=== PATIENT | male | born 1930 | race Caucasian/White ===

== ENCOUNTER 2018-11-19 10:07 | Observation (INO) | payer MEDICARE, BC ==
[2018-11-19] MEDS ORDERED: SODIUM CHLORIDE 0.9% 1,000 ML IV STA (10:12)
--- NOTE | 2018-11-19 11:01 | XR ---
EXAMINATION TYPE: XR chest 2V DATE OF EXAM: 11/19/2018 HISTORY: pain. REFERENCE: Previous study dated 08/04/2016. FINDINGS: There has been a midline sternotomy. The heart is mildly enlarged. There are chronic inters titial changes. I do not see evidence of pneumonia or edema. There is chronic blunting of the right C P angle. IMPRESSION: 1. MILD CARDIOMEGALY. 2. CHRONIC RIGHT-SIDED PLEURAL REACTION.
--- NOTE | 2018-11-19 11:54 | ED ---
Chest Pain HPI - General Stated Complaint: Chest pain Time Seen by Provider: 11/19/18 10:11 Source: RN notes reviewed, old records reviewed - History of Present Illness Initial Comments: This is a 8-year-old male the ER for evaluation. Presents today for evaluation of chest pain. Patient's poor historian unable to give accurate history secondary to recent short-term memory loss, constant repeating himself. History obtained by EMS patient's chart. MD Complaint: chest pain -: unknown Onset: during rest, awoke with symptoms Pain Location: substernal, left chest Pain Radiation: none, LUE Severity: mild Severity scale (1-10): 2 Quality: tightness Consistency: constant Improves With: nothing Worsens With: nothing Anginal Symptoms: nausea Other Symptoms: palpitations Treatments Prior to Arrival: none - Related Data Home Medications Medication Instructions Recorded Confirmed Aspirin 162 mg PO DAILY 09/08/14 11/19/18 Atorvastatin [Lipitor] 20 mg PO DAILY 09/08/14 11/19/18 Omeprazole [PriLOSEC] 20 mg PO AC-BRKFST 09/08/14 11/19/18 Cholecalciferol [Vitamin D3] 1,000 unit PO DAILY 08/04/16 11/19/18 Levothyroxine Sodium [Synthroid] 50 mcg PO DAILY 08/04/16 11/19/18 Metoprolol Tartrate [Lopressor] 25 mg PO BID 08/04/16 11/19/18 Vitamin B Complex 1 cap PO DAILY 08/04/16 11/19/18 Allergies Allergy/AdvReac Type Severity Reaction Status Date / Time No Known Allergies Allergy Verified 11/19/18 11:13 Review of Systems ROS Statement: Those systems with pertinent positive or pertinent negative responses have been documented in the HPI. ROS Other: All systems not noted in ROS Statement are negative. EKG Findings - EKG Comments: EKG Findings:: EKG shows bradycardic rhythm junctional rate of 50, [place] interval 244 4, QRS 94, QTc 485 Past Medical History Past Medical History: Atrial Fibrillation, Coronary Artery Disease (CAD), Deep Vein Thrombosis (DVT), GI Bleed, Hearing Disorder / Deafness, Hyperlipidemia, Hypertension, Osteoarthritis (OA) Additional Past Medical History / Comment(s): short term memory impairment, [place] RT EAR DEAF LT EAR HEARING AID, BRONCHITIS, PNEUMOTHORAX, DIVERTICULITIS, ESOPHEGEAL STRICTURES HAD DILATION DONE NOW VERY MIN DIFFICULTY SWALLOWING, SHINGLE SYEARS AGO.UTI History of Any Multi-Drug Resistant Organisms: None Reported Past Surgical History: Appendectomy, Bowel Resection, Cholecystectomy, Coronary Bypass/CABG, Heart Catheterization, Hernia Repair, Joint Replacement, Orthopedic Surgery, Tonsillectomy Additional Past Surgical History / Comment(s): left knee REPALCEMENT,ORIF right ankle, "5 way coronary bypass", right total hip, C/T 2001, HEMORRHOIDECTOMY, EGD /COLONOSCOPY, MARY CATARACTS-LENS IMPLANTS,ESOPHEAL DILATION Past Anesthesia/Blood Transfusion Reactions: No Reported Reaction Past Psychological History: No Psychological Hx Reported Additional Psychological History / Comment(s): PT LIVES AT HOME WITH HIS , USES A CANE FOR LONG DISTANCES. 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) Smoking Status: Never smoker Past Alcohol Use History: Daily Additional Past Alcohol Use History / Comment(s): ENJOYS A VODKA AND CRANBERRY MIXED DRINK BEFORE AND AFTER DINNER Past Drug Use History: None Reported - Past Family History Father Family Medical History: AFIB, Cancer, Thyroid Disorder Additional Family Medical History / Comment(s): DJD, LYMPHOMA, BRUSITIS Mother Family Medical History: AFIB, Osteoarthritis (OA) Additional Family Medical History / Comment(s): GOUT, DEPRESSION IN LATER LIFE, CATARACTS General Exam General appearance: alert, in no apparent distress Head exam: Present: atraumatic, normocephalic, normal inspection Eye exam: Present: normal appearance, PERRL, EOMI. Absent: scleral icterus, conjunctival injection, periorbital swelling ENT exam: Present: normal exam, mucous membranes moist Neck exam: Present: normal inspection. Absent: tenderness, meningismus, lymphadenopathy Respiratory exam: Present: normal lung sounds bilaterally. Absent: respiratory distress, wheezes, rales, rhonchi, stridor Cardiovascular Exam: Present: regular rate, normal rhythm, normal heart sounds. Absent: systolic murmur, diastolic murmur, rubs, gallop, clicks GI/Abdominal exam: Present: soft, normal bowel sounds. Absent: distended, tenderness, guarding, rebound, rigid Extremities exam: Present: normal inspection, full ROM, normal capillary refill. Absent: tenderness, pedal edema, joint swelling, calf tenderness Back exam: Present: normal inspection Neurological exam: Present: alert, oriented X3, CN II-XII intact Psychiatric exam: Present: normal affect, normal mood Skin exam: Present: warm, dry, intact, normal color. Absent: rash Course Vital Signs 11/19/18 11/19/18 10:08 10:24 Temperature 97.5 F L Pulse Rate 52 L Respiratory 18 18 Rate Blood Pressure 133/62 O2 Sat by Pulse 100 Oximetry medical - Reevaluation(s) Reevaluation #1: 11/19/18 10:45 Medical records reviewed Chest Pain MDM - MDM 88 male the ER for evaluation. Patient be admitted for cardiac observation Disposition Clinical Impression: Unstable angina, Chest pain Disposition: ADMITTED IP TO THIS HOSP Condition: Undetermined Is patient prescribed a controlled substance at d/c from ED?: No
[2018-11-19] MEDS ORDERED: HEPARIN SODIUM,PORCINE 5,000 UNIT/ML 1 ML VIAL ONE (15:20)
[2018-11-19] MEDS ORDERED: SODIUM CHLORIDE 0.9% 1,000 ML BAG ONE (15:20)
[2018-11-19] MEDS ORDERED: HEPARIN SOD,PORK IN 0.45% NACL PMX 25,000 UNIT/250 ML BAG IV ONE (15:20)
[2018-11-19 22:22] LABS: Basophils % (A) 0 %; Eosinophils # (A) 0.1 k/uL (0-0.7); Eosinophils % (A) 1 %; HCT 41.1 % (39.0-53.0); HGB 13.9 gm/dL (13.0-17.5); Lymphocytes # (A) 2.1 k/uL (1.0-4.8); Lymphocytes % (A) 18 %; MCH 32.8 pg (25.0-35.0); MCHC 33.7 g/dL (31.0-37.0); MCV 97.3 fL (80.0-100.0); Mean Platelet Volume 8.1; Monocytes # (A) 0.7 k/uL (0-1.0); Monocytes % (A) 6 %; Neutrophils # (A) 8.4 k/uL (1.3-7.7); Neutrophils % (A) 73 %; Platelet Count 159 k/uL (150-450); RBC 4.23 m/uL (4.30-5.90); RDW 12.4 % (11.5-15.5); WBC 11.6 k/uL (3.8-10.6)
[2018-11-20] MEDS ORDERED: HEPARIN SODIUM,PORCINE 5,000 UNIT/ML 1 ML VIAL IV PRN (01:14)
[2018-11-20] MEDS ORDERED: HEPARIN SOD,PORK IN 0.45% NACL 25,000 UNIT in 0.45% NACL 1 250ML.BAG IV SCH (01:15)
[2018-11-20 03:23] LABS: Albumin 3.8 g/dL (3.5-5.0); Calcium 9.6 mg/dL (8.4-10.2); Potassium 4.5 mmol/L (3.5-5.1); Total Bilirubin 0.9 mg/dL (0.2-1.3); Total Protein 6.9 g/dL (6.3-8.2)
[2018-11-20 03:24] LABS: Creatine Kinase 58 U/L (55-170); Creatine Kinase MB 1.8 ng/mL (0.0-2.4); Troponin I <0.012 ng/mL (0.000-0.034)
[2018-11-20 03:51] LABS: Creatine Kinase 63 U/L (55-170)
[2018-11-20 04:04] LABS: Creatine Kinase MB 1.8 ng/mL (0.0-2.4); Troponin I <0.012 ng/mL (0.000-0.034)
--- NOTE | 2018-11-20 08:32 | P.CRDCN ---
History of Present Illness Consult date: 11/20/18 Chief complaint: Chest pain History of present illness: This is a pleasant 88-year-old gentleman who presented to the emergency room complaining of chest discomfort. The patient overall is a poor historian. He does have history of coronary artery disease and he stated that he underwent coronary artery bypass grafting 4 at [facility] but he does not recall the time. Beside that he does have hypertension as well as dyslipidemia. According to him, currently he does not follow with any smoking pipe mounter. The patient was in his usual state of health yesterday when he was getting out of his bed and sitting on the age of the bed when he started experiencing chest discomfort, in the center of the chest, as a pressure without any radiation to the arm or neck or shoulders, and it was associated with shortness of breath as well as a sweating. The chest discomfort lasted about an hour, when the patient arrived to the emergency room he was chest pain-free and continues to be chest pain-free during his hospitalization. The cardiac enzymes were checked and came in to be unremarkable. The chest x- ray did not show any acute abnormalities. The initial EKG showed sinus rhythm without any ischemic ST or T-wave abnormalities but the subsequent EKG showed T wave inversion in the whole anterolateral leads. So the patient does have dynamic ST and T wave abnormalities quite concerning for severe underlying coronary artery disease. Past Medical History Past Medical History: Atrial Fibrillation, Coronary Artery Disease (CAD), Deep Vein Thrombosis (DVT), GI Bleed, Hearing Disorder / Deafness, Hyperlipidemia, Hypertension, Osteoarthritis (OA) Additional Past Medical History / Comment(s): short term memory impairment, [place] RT EAR DEAF LT EAR HEARING AID, BRONCHITIS, PNEUMOTHORAX, DIVERTICULITIS, ESOPHEGEAL STRICTURES HAD DILATION DONE NOW VERY MIN DIFFICULTY SWALLOWING, SHINGLE SYEARS AGO.UTI History of Any Multi-Drug Resistant Organisms: None Reported Past Surgical History: Appendectomy, Bowel Resection, Cholecystectomy, Coronary Bypass/CABG, Heart Catheterization, Hernia Repair, Joint Replacement, Orthopedic Surgery, Tonsillectomy Additional Past Surgical History / Comment(s): left knee REPALCEMENT,ORIF right ankle, "5 way coronary bypass", right total hip, C/T 2001, HEMORRHOIDECTOMY, EGD /COLONOSCOPY, MARY CATARACTS-LENS IMPLANTS,ESOPHEAL DILATION Past Anesthesia/Blood Transfusion Reactions: No Reported Reaction Past Psychological History: No Psychological Hx Reported Additional Psychological History / Comment(s): PT LIVES AT HOME WITH HIS , USES A CANE FOR LONG DISTANCES. 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) Smoking Status: Never smoker Past Alcohol Use History: Daily Additional Past Alcohol Use History / Comment(s): ENJOYS A VODKA AND CRANBERRY MIXED DRINK BEFORE AND AFTER DINNER Past Drug Use History: None Reported - Past Family History Father Family Medical History: AFIB, Cancer, Thyroid Disorder Additional Family Medical History / Comment(s): DJD, LYMPHOMA, BRUSITIS Mother Family Medical History: AFIB, Osteoarthritis (OA) Additional Family Medical History / Comment(s): GOUT, DEPRESSION IN LATER LIFE, CATARACTS Medications and Allergies Home Medications Medication Instructions Recorded Confirmed Type Aspirin 162 mg PO DAILY 09/08/14 11/19/18 History Atorvastatin [Lipitor] 20 mg PO DAILY 09/08/14 11/19/18 History Omeprazole [PriLOSEC] 20 mg PO AC-BRKFST 09/08/14 11/19/18 History Cholecalciferol [Vitamin D3] 1,000 unit PO DAILY 08/04/16 11/19/18 History Levothyroxine Sodium [Synthroid] 50 mcg PO DAILY 08/04/16 11/19/18 History Metoprolol Tartrate [Lopressor] 25 mg PO BID 08/04/16 11/19/18 History Vitamin B Complex 1 cap PO DAILY 08/04/16 11/19/18 History Allergies Allergy/AdvReac Type Severity Reaction Status Date / Time No Known Allergies Allergy Verified 11/19/18 11:13 Physical Exam Vitals: Vital Signs Temp Pulse Pulse Resp BP BP Pulse Ox 11/20/18 07:05 98.5 F 78 18 122/57 96 11/20/18 04:00 98.4 F 85 18 118/60 97 11/20/18 03:29 18 11/19/18 23:35 18 11/19/18 23:26 97.9 F 71 18 108/66 97 11/19/18 20:45 18 11/19/18 20:00 97.4 F L 75 18 136/64 99 11/19/18 10:24 18 11/19/18 10:08 97.5 F L 52 L 18 133/62 100 Intake and Output 11/19/18 11/20/18 11/20/18 22:59 06:59 14:59 Intake Total 15.64 Balance 15.64 Intake: Intake, IV Titration 15.64 Amount Heparin Sod,Pork in 0.45% 15.64 NaCl 25,000 unit In 0.45 % NaCl 1 250ml.bag @ 10 mls/hr IV .Q24H [facility] Rx#: [id number] Other: # Voids 1 1 - Constitutional General appearance: no acute distress - Respiratory Respiratory: bilateral: CTA - Cardiovascular Rhythm: regular Heart sounds: normal: S1, S2 Abnormal Heart Sounds: systolic murmur Results 11/19/18 10:42 11/19/18 14:48 Cardiac Enzymes 11/19/18 11/19/18 11/20/18 Range/Units 14:48 14:48 02:52 AST 51 (17-59) U/L CK-MB (CK-2) 1.8 1.8 (0.0-2.4) ng/mL Troponin I <0.012 <0.012 (0.000-0.034) ng/mL Coagulation 11/19/18 11/20/18 Range/Units 20:45 02:52 APTT 45.8 H 41.3 H (22.0-30.0) sec CBC 11/19/18 Range/Units 10:42 WBC 11.6 H (3.8-10.6) k/uL RBC 4.23 L (4.30-5.90) m/uL Hgb 13.9 (13.0-17.5) gm/dL Hct 41.1 (39.0-53.0) % Plt Count 159 (150-450) k/uL Comprehensive Metabolic Panel 11/19/18 Range/Units 14:48 Sodium 143 (137-145) mmol/L Potassium 4.5 (3.5-5.1) mmol/L Chloride 111 H (98-107) mmol/L Carbon Dioxide 26 (22-30) mmol/L BUN 22 H (9-20) mg/dL Creatinine 0.84 (0.66-1.25) mg/dL Glucose 110 H (74-99) mg/dL Calcium 9.6 (8.4-10.2) mg/dL AST 51 (17-59) U/L ALT 54 (21-72) U/L Alkaline Phosphatase 55 (38-126) U/L Total Protein 6.9 (6.3-8.2) g/dL Albumin 3.8 (3.5-5.0) g/dL Intake and Output 11/19/18 11/20/18 11/20/18 22:59 06:59 14:59 Intake Total 15.64 Balance 15.64 Intake: Intake, IV Titration 15.64 Amount Heparin Sod,Pork in 0.45% 15.64 NaCl 25,000 unit In 0.45 % NaCl 1 250ml.bag @ 10 mls/hr IV .Q24H [facility] Rx#: [id number] Other: # Voids 1 1 11/19/18 10:42 11/19/18 14:48 Assessment and Plan Assessment: Assessment #1 chest discomfort, concerning for angina. #[address] changes on the EKG represents severe underlying coronary artery disease #3 known CAD and status post CABG with unknown details #4 hypertension #5 dyslipidemia Plan #1 restart aspirin metoprolol, and statin #2 add oral nitrates to the current medical regimen #3 obtain an echocardiogram was Doppler #4 pursue a conservative medical approach at this point, unless the patient does have any more episodes of chest discomfort, I would consider coronary angiogram #4 monitor the patient for additional 24 hours #5 follow-up with the patient. Thank you for allowing us participate in his care.
[2018-11-20] MEDS ORDERED: NON-FORMULARY DRUG (Vitamin B Complex [Vitamin B Complex] 1 CAP) PO SCH (09:00)
[2018-11-20] MEDS: PANTOPRAZOLE 40 MG TABLET PO SCH (10:20)
[2018-11-20] MEDS: METOPROLOL TARTRATE 25 MG TAB PO SCH ×2 (10:20→20:02)
[2018-11-20] MEDS: ISOSORBIDE MONONITRATE ER 30 MG TAB.ER.24H PO SCH (10:20)
[2018-11-20] MEDS: ATORVASTATIN 20 MG TAB PO SCH (10:20)
[2018-11-20] MEDS: LEVOTHYROXINE 50 MCG TAB PO SCH (10:20)
[2018-11-20] MEDS: ASPIRIN 81 MG PO SCH (10:20)
[2018-11-20] MEDS ORDERED: CHOLECALCIFEROL 1,000 UNIT TAB PO SCH (12:00)
--- NOTE | 2018-11-20 14:11 | P.HPIM ---
History of Present Illness H&P Date: 11/19/18 Chief Complaint: Unstable angina, CAD, A. fib, history of DVT, history of GI bleed 88-year-old male one of our office patient with past medical history of CAD post bypass surgery 4 vessel many years ago, history of A. fib, history of recurrent angina, history of mild memory loss and DVT who developed to have severe midsternal chest pain as a newly onset of angina around 3:00 in the morning radiating to the left upper shoulder area associated with cold sweat palpitation nausea and vomiting with worsening confusion at the time symptoms were very bad, and respond to 2 nitroglycerin and time. Patient was transferred to the emergency department at [facility] his cardiac enzyme came back normal at the time patient was started on angina protocol consult cardiology and admit patient to the hospital for the above problem. Review of Systems CONSTITUTIONAL: Well-developed no acute respiratory distress. EYES: No icterus sclerae, no conjunctivitis. EARS, NOSE, MOUTH, THROAT, and FACE: No sore throat, lymphadenopathy, carotid bruits or deformity. RESPIRATORY: No SOB cough or wheezes. CARDIOVASCULAR: Positive CP, Palpitation, PND, Orthopnea, or angina. GASTROINTESTINAL: No Abd pain, Nausea or vomiting, no Diarrhea or constipation, No GI Bleed, no distention or masses. GENITOURINARY: Negative for Hematuria or UTI, no kidney stones. INTEGUMENT/BREAST: Negative for any muscular injury with mild osteoarthritis.. HEMATOLOGIC/LYMPHATIC: Negative for bleed or purpura. MUSCULOSKELTAL: Negative for Myalgia or arthralgia. NEURLOGICAL: Positive memory loss, no major weakness. BEHAVIORAL/PSYCH: Negative. ENDOCRINE: Negative. Past Medical History Past Medical History: Atrial Fibrillation, Coronary Artery Disease (CAD), Deep Vein Thrombosis (DVT), GI Bleed, Hearing Disorder / Deafness, Hyperlipidemia, Hypertension, Osteoarthritis (OA) Additional Past Medical History / Comment(s): short term memory impairment, [place] RT EAR DEAF LT EAR HEARING AID, BRONCHITIS, PNEUMOTHORAX, DIVERTICULITIS, ESOPHEGEAL STRICTURES HAD DILATION DONE NOW VERY MIN DIFFICULTY SWALLOWING, SHINGLE SYEARS AGO.UTI History of Any Multi-Drug Resistant Organisms: None Reported Past Surgical History: Appendectomy, Bowel Resection, Cholecystectomy, Coronary Bypass/CABG, Heart Catheterization, Hernia Repair, Joint Replacement, Orthopedic Surgery, Tonsillectomy Additional Past Surgical History / Comment(s): left knee REPALCEMENT,ORIF right ankle, "5 way coronary bypass", right total hip, C/T 2001, HEMORRHOIDECTOMY, EGD /COLONOSCOPY, MARY CATARACTS-LENS IMPLANTS,ESOPHEAL DILATION Past Anesthesia/Blood Transfusion Reactions: No Reported Reaction Past Psychological History: No Psychological Hx Reported Additional Psychological History / Comment(s): PT LIVES AT HOME WITH HIS , USES A CANE FOR LONG DISTANCES. 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) Smoking Status: Never smoker Past Alcohol Use History: Daily Additional Past Alcohol Use History / Comment(s): ENJOYS A VODKA AND CRANBERRY MIXED DRINK BEFORE AND AFTER DINNER Past Drug Use History: None Reported - Past Family History Father Family Medical History: AFIB, Cancer, Thyroid Disorder Additional Family Medical History / Comment(s): DJD, LYMPHOMA, BRUSITIS Mother Family Medical History: AFIB, Osteoarthritis (OA) Additional Family Medical History / Comment(s): GOUT, DEPRESSION IN LATER LIFE, CATARACTS Medications and Allergies Home Medications Medication Instructions Recorded Confirmed Type Aspirin 162 mg PO DAILY 09/08/14 11/19/18 History Atorvastatin [Lipitor] 20 mg PO DAILY 09/08/14 11/19/18 History Omeprazole [PriLOSEC] 20 mg PO AC-BRKFST 09/08/14 11/19/18 History Cholecalciferol [Vitamin D3] 1,000 unit PO DAILY 08/04/16 11/19/18 History Levothyroxine Sodium [Synthroid] 50 mcg PO DAILY 08/04/16 11/19/18 History Metoprolol Tartrate [Lopressor] 25 mg PO BID 08/04/16 11/19/18 History Vitamin B Complex 1 cap PO DAILY 08/04/16 11/19/18 History Allergies Allergy/AdvReac Type Severity Reaction Status Date / Time No Known Allergies Allergy Verified 11/19/18 11:13 Physical Exam Vitals: Vital Signs Temp Pulse Pulse Resp BP BP Pulse Ox 11/19/18 20:45 18 11/19/18 20:00 97.4 F L 75 18 136/64 99 11/19/18 10:24 18 11/19/18 10:08 97.5 F L 52 L 18 133/62 100 Intake and Output 11/19/18 11/19/18 11/19/18 06:59 14:59 22:59 Other: # Voids 1 Weight 90.2 kg General Appearance: Alert, cooperative, no distress, appears stated age. Mildly overweight not having any chest pain at the time. Neck HEENT: Supple, no lymphadenopathy, no thyroid enlargement, no carotid bruits. Lungs: Clear to auscultation without crackles or wheezes no rhonchi, no deformity. Chest Wall: Decreased expansion bilaterally, no deformity no tenderness over the chest wall area congenital abnormality. No rash. Heart: PMI is in the left fifth costal space jose ramon-axillary line Irregular rhythm and rate S1, S2 positive history positive JVD. Back: Symmetric, no curvature, ROM normal, no CVA tenderness. Abdomen: Soft, non-tender, bowel sounds active all four quadrants, no masses, no organomegaly. Extremities: Extremities normal, atraumatic, no cyanosis or edema. Pulses: 2+ and symmetric. Skin: Skin color, texture, tugor normal, no rashes or lesions. Neurologic: Alert slightly confusion moving all his 4 extremity has a last weakness possibly abnormal gait and balance. Results CBC & Chem 7: 11/19/18 10:42 11/19/18 14:48 Thrombosis Risk Factor Assmnt - DVT/VTE Prophylaxis DVT/VTE Prophylaxis: Pharmacologic Prophylaxis ordered, Mechanical Prophylaxis ordered Assessment and Plan Plan: 1 unstable angina: Admit patient to the hospital, consult cardiology, CK with troponin 3 be done, repeat EKG and possible request echocardiogram. Long discussion with the family they wished not to proceed with any invasive testing including heart catheter or other but medical management is with her asking for to stabilize the patient and keep him symptom free. 2 history of CAD: Post quadruple bypass years ago patient's seeing cardiology regular basis last invasive testing was few years ago with mild disease at the time. Patient will be continued on medical management but beta won and possible long acting nitrate will be helpful. 3 hypertension: Has been doing well on metoprolol. 4 hyperlipidemia: Remain on atorvastatin 20 mg daily continue medication. 5 hypothyroidism: Continue patient on Synthroid 50 g daily. 6 severe GERD: Patient has been on omeprazole 20 mg daily continue medication. 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 8 abnormal balance and gait: Patient is walking with the walker and he might need PTOT. 9 GI prophylaxis: Remain on omeprazole. 10 DVT prophylaxis: Patient will have knee-high ADRIANA hose and Venodyne boots and early mobilization. CODE STATUS: DO NOT RESUSCITATE. Admit patient to inpatient status for more than 2 nights.
--- NOTE | 2018-11-20 14:16 | P.PN ---
Subjective Progress Note Date: 11/20/18 Principal diagnosis: Unstable angina, CAD, A. fib, history of DVT, history of GI bleed 88-year-old male one of our office patient with past medical history of CAD post bypass surgery 4 vessel many years ago, history of A. fib, history of recurrent angina, history of mild memory loss and DVT who developed to have severe midsternal chest pain as a newly onset of angina around 3:00 in the morning radiating to the left upper shoulder area associated with cold sweat palpitation nausea and vomiting with worsening confusion at the time symptoms were very bad, and respond to 2 nitroglycerin and time. Patient was transferred to the emergency department at [facility] his cardiac enzyme came back normal at the time patient was started on angina protocol consult cardiology and admit patient to the hospital for the above problem. 11/20: Patient was seen cardiology, was started on isosorbide, patient is symptom free at this point, CK with troponin were negative. Patient will be going for an echocardiogram continue medical management titrate mobility and possibly discharge home tomorrow. Objective - Vital Signs Vital signs: Vital Signs Temp 98.6 F 11/20/18 11:25 Pulse 62 11/20/18 11:51 Resp 18 11/20/18 11:51 BP 121/65 11/20/18 11:25 Pulse Ox 97 11/20/18 11:25 Intake & Output 11/19/18 11/20/18 11/20/18 18:59 06:59 18:59 Intake Total 15.64 240 Balance 15.64 240 Weight 90.2 kg Intake: Intake, IV Titration 15.64 Amount Heparin Sod,Pork in 0.45% 15.64 NaCl 25,000 unit In 0.45 % NaCl 1 250ml.bag @ 10 mls/hr IV .Q24H ALLYSSA Rx#: [id number] Oral 240 Other: Voiding Method Toilet # Voids 1 1 - Constitutional Constitutional Comment(s): Review of Systems CONSTITUTIONAL: Well-developed no acute respiratory distress. EYES: No icterus sclerae, no conjunctivitis. EARS, NOSE, MOUTH, THROAT, and FACE: No sore throat, lymphadenopathy, carotid bruits or deformity. RESPIRATORY: No SOB cough or wheezes. CARDIOVASCULAR: Positive CP, Palpitation, PND, Orthopnea, or angina. GASTROINTESTINAL: No Abd pain, Nausea or vomiting, no Diarrhea or constipation, No GI Bleed, no distention or masses. GENITOURINARY: Negative for Hematuria or UTI, no kidney stones. INTEGUMENT/BREAST: Negative for any muscular injury with mild osteoarthritis.. HEMATOLOGIC/LYMPHATIC: Negative for bleed or purpura. MUSCULOSKELTAL: Negative for Myalgia or arthralgia. NEURLOGICAL: Positive memory loss, no major weakness. BEHAVIORAL/PSYCH: Negative. ENDOCRINE: Negative. Physical Exam: General Appearance: Alert, cooperative, no distress, appears stated age. Mildly overweight not having any chest pain at the time. Neck HEENT: Supple, no lymphadenopathy, no thyroid enlargement, no carotid bruits. Lungs: Clear to auscultation without crackles or wheezes no rhonchi, no deformity. Chest Wall: Decreased expansion bilaterally, no deformity no tenderness over the chest wall area congenital abnormality. No rash. Heart: PMI is in the left fifth costal space jose ramon-axillary line Irregular rhythm and rate S1, S2 positive history positive JVD. Back: Symmetric, no curvature, ROM normal, no CVA tenderness. Abdomen: Soft, non-tender, bowel sounds active all four quadrants, no masses, no organomegaly. Extremities: Extremities normal, atraumatic, no cyanosis or edema. Pulses: 2+ and symmetric. Skin: Skin color, texture, tugor normal, no rashes or lesions. Neurologic: Alert slightly confusion moving all his 4 extremity has a last weakness possibly abnormal gait and balance. - Labs CBC & Chem 7: 11/19/18 10:42 11/19/18 14:48 Labs: Abnormal Lab Results - Last 24 Hours (Table) 11/19/18 11/19/18 11/19/18 Range/Units 10:42 14:48 20:45 WBC 11.6 H (3.8-10.6) k/uL RBC 4.23 L (4.30-5.90) m/uL Neutrophils # 8.4 H (1.3-7.7) k/uL APTT 45.8 H (22.0-30.0) sec Chloride 111 H (98-107) mmol/L BUN 22 H (9-20) mg/dL Glucose 110 H (74-99) mg/dL 11/20/18 Range/Units 02:52 WBC (3.8-10.6) k/uL RBC (4.30-5.90) m/uL Neutrophils # (1.3-7.7) k/uL APTT 41.3 H (22.0-30.0) sec Chloride (98-107) mmol/L BUN (9-20) mg/dL Glucose (74-99) mg/dL Assessment and Plan Plan: 1 unstable angina: Doing much better, no symptoms currently, was started on Imdur and echocardiogram will be done today or early tomorrow, titrate physical therapy and mobility and no chest pain so far. 2 history of CAD: Post quadruple bypass years ago patient's seeing cardiology regular basis last invasive testing was few years ago with mild disease at the time. Patient will be continued on medical management but beta won and possible long acting nitrate will be helpful. 3 hypertension: Has been doing well on metoprolol. 4 hyperlipidemia: Remain on atorvastatin 20 mg daily continue medication. 5 hypothyroidism: Continue patient on Synthroid 50 g daily. 6 severe GERD: Patient has been on omeprazole 20 mg daily continue medication. 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 8 abnormal balance and gait: Patient is walking with the walker and he might need PTOT. Discharge planning: Possibly tomorrow if patient is doing well.
[2018-11-21 04:30] VITALS: TEMP 98.5
[2018-11-21] MEDS: LEVOTHYROXINE 50 MCG TAB PO SCH (05:43)
[2018-11-21 06:26] LABS: Basophils % (A) 0 %; Eosinophils # (A) 0.3 k/uL (0-0.7); Eosinophils % (A) 3 %; HCT 38.4 % (39.0-53.0); HGB 13.1 gm/dL (13.0-17.5); Lymphocytes # (A) 2.7 k/uL (1.0-4.8); Lymphocytes % (A) 28 %; MCH 32.9 pg (25.0-35.0); MCHC 34.3 g/dL (31.0-37.0); MCV 95.9 fL (80.0-100.0); Mean Platelet Volume 7.6; Monocytes # (A) 0.7 k/uL (0-1.0); Monocytes % (A) 7 %; Neutrophils # (A) 5.7 k/uL (1.3-7.7); Neutrophils % (A) 59 %; Platelet Count 165 k/uL (150-450); RDW 12.6 % (11.5-15.5); WBC 9.7 k/uL (3.8-10.6)
[2018-11-21 07:52] VITALS: BP 112/67; PULSE 61; RESP 16
[2018-11-21] MEDS: METOPROLOL TARTRATE 25 MG TAB PO SCH (09:39)
[2018-11-21] MEDS: ASPIRIN 81 MG PO SCH (09:39)
[2018-11-21] MEDS: ATORVASTATIN 20 MG TAB PO SCH (09:39)
[2018-11-21] MEDS: PANTOPRAZOLE 40 MG TABLET PO SCH (09:39)
[2018-11-21] MEDS: ISOSORBIDE MONONITRATE ER 30 MG TAB.ER.24H PO SCH (09:40)
--- NOTE | 2018-11-21 09:41 | ECHOF ---
Referral Reason:chest pain MEASUREMENTS -------- HEIGHT: 175.3 cm WEIGHT: 89.8 kg BP: 125/52 RVIDd: 3.5 cm (< 3.3) IVSd: 1.3 cm (0.6 - 1.1) LVIDd: 4.4 cm (3.9 - 5.3) LVPWd: 1.6 cm (0.6 - 1.1) IVSs: 1.8 cm LVIDs: 3.4 cm LVPWs: 1.4 cm LA Diam: 4.4 cm (2.7 - 3.8) LAESV Index (A-L): 59.74 ml/m Ao Diam: 3.7 cm (2.0 - 3.7) AV Cusp: 0.6 cm (1.5 - 2.6) LA Diam: 4.5 cm (2.7 - 3.8) MV EXCURSION: 19.523 mm (> 18.000) MV EF SLOPE: 75 mm/s (70 - 150) EPSS: 0.3 cm MV E Jostin: 0.96 m/s MV DecT: 484 ms MV A Jostin: 1.16 m/s MV E/A Ratio: 0.83 AV maxP.90 mmHg AV meanP.81 mmHg RAP: 5.00 mmHg RVSP: 32.00 mmHg FINDINGS -------- Sinus rhythm. This was a technically good study. The left ventricular size is normal. There is mild concentric left ventricular hypertrophy. Overa ll left ventricular systolic function is low-normal with, an EF between 50 - 55 %. The right ventricle is normal in size. The left atrium is moderately dilated. LA is severely dilated >40 ml/m2 The right atrial size is normal. There is mild to moderate aortic valve sclerosis. There is mild aortic regurgitation. There is mo [id number] aortic stenosis present. Peak/mean gradient across the Aortic Valve is 43.90mmHg / 25.81mmHg. The mitral valve leaflets are mildly thickened. Mild mitral annular calcification present. Mild m itral regurgitation is present. Mild tricuspid regurgitation present. There is no evidence of pulmonary hypertension. The right v entricular systolic pressure, as measured by Doppler, is 32.00mmHg. There is no pulmonic regurgitation present. The aortic root size is normal. Echo free space represents a pericardial fat pad. CONCLUSIONS -------- 1. The left ventricular size is normal. 2. There is mild concentric left ventricular hypertrophy. 3. Overall left ventricular systolic function is low-normal with, an EF between 50 - 55 %. 4. The right ventricle is normal in size. 5. The left atrium is moderately dilated. 6. LA is severely dilated >40 ml/m2 7. The right atrial size is normal. 8. There is mild to moderate aortic valve sclerosis. 9. There is mild aortic regurgitation. 10. There is ldlncilv-xj-pvzdtz aortic stenosis present. 11. Peak/mean gradient across the Aortic Valve is 43.90mmHg / 25.81mmHg. 12. The mitral valve leaflets are mildly thickened. 13. Mild mitral annular calcification present. 14. Mild mitral regurgitation is present. 15. Mild tricuspid regurgitation present. 16. There is no evidence of pulmonary hypertension. 17. The right ventricular systolic pressure, as measured by Doppler, is 32.00mmHg. 18. There is no pulmonic regurgitation present. 19. The aortic root size is normal. 20. Echo free space represents a pericardial fat pad. GEOGRAPHIC ARE[employer] INTELLIGENCE OFFICER: Mira Jorge RDCS
--- NOTE | 2018-11-21 11:40 | P.PN ---
Subjective Dr. 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 He denies any further symptoms of chest discomfort. He also denies any significant shortness of breath, dizziness or palpitations. Echocardiogram is been obtained and reviewed and reveals preserved left ventricular systolic function with ejection fraction 50-55%, severely dilated left atrium, moderate to severe aortic stenosis with a mean gradient across the valve of 25 mmHg, mild MR and mild TR. Blood pressure 112/67 heart rate 61 afebrile mean oxygen saturation on room air. Currently maintained on Imdur 30 mg daily, atorvastatin 20 mg daily, aspirin 162 mg daily and Lopressor 25 mg twice a day. GENERAL: Well-appearing, well-nourished and in no acute distress. NECK: Supple without JVD or thyromegaly. LUNGS: Breath sounds clear to auscultation bilaterally. Respiration equal and unlabored. No wheezes, rales or rhonchi. HEART: Regular rate and rhythm with pansystolic murmur, no rubs or gallops. S1 and S2 heard. EXTREMITIES: Normal range of motion, no edema. No clubbing or cyanosis. Peripheral pulses intact. ASSESSMENT Chest discomfort suggestive of angina Ischemic ST changes on EKG History of coronary artery disease status post bypass grafting in 1996 Hypertension Dyslipidemia Aortic stenosis PLAN Echocardiogram is been obtained and reviewed. Aortic stenosis has worsened since previous echocardiogram obtained in the office. No further symptoms of chest discomfort. Conservative medical approach recommended. Recommend discontinuing Imdur secondary to severe aortic stenosis. Follow-up in the office with Dr. Hargrove upon discharge for further discussion regarding the aortic valve. Nurse Practitioner note has been reviewed, I agree with a documented findings and plan of care. Patient was seen and examined. Objective - Vital Signs Vital signs: Vital Signs Temp 98.5 F 11/21/18 04:00 Pulse 61 11/21/18 07:51 Resp 16 11/21/18 07:51 BP 112/67 11/21/18 07:51 Pulse Ox 97 11/21/18 07:51 Intake & Output 11/20/18 11/21/18 11/21/18 18:59 06:59 18:59 Intake Total 240 Balance 240 Intake: Oral 240 Other: Voiding Method Toilet Toilet # Voids 1 1 - Labs CBC & Chem 7: 11/21/18 05:54 11/19/18 14:48 Labs: Abnormal Lab Results - Last 24 Hours (Table) 11/21/18 Range/Units 05:54 RBC 4.00 L (4.30-5.90) m/uL Hct 38.4 L (39.0-53.0) %
--- NOTE | 2018-11-21 12:36 | P.DS ---
Providers Date of admission: 11/19/18 13:54 Attending physician: Kvng Olivire Consults: 11/20/18 07:41 Consult Physician Urgent Consulting Provider: Alpesh Hargrove Consult Reason/Comments: chest pain Do you want consulting provider notified?: Yes, Notify in am Placement Type Exists?: Yes Primary care physician: [facility] [place]: Unstable angina, CAD, A. fib, history of DVT, history of GI bleed 88-year-old male one of our office patient with past medical history of CAD post bypass surgery 4 vessel many years ago, history of A. fib, history of recurrent angina, history of mild memory loss and DVT who developed to have severe midsternal chest pain as a newly onset of angina around 3:00 in the morning radiating to the left upper shoulder area associated with cold sweat palpitation nausea and vomiting with worsening confusion at the time symptoms were very bad, and respond to 2 nitroglycerin and time. Patient was transferred to the emergency department at [facility] his cardiac enzyme came back normal at the time patient was started on angina protocol consult cardiology and admit patient to the hospital for the above problem. 11/20: Patient was seen cardiology, was started on isosorbide, patient is symptom free at this point, CK with troponin were negative. Patient will be going for an echocardiogram continue medical management titrate mobility and possibly discharge home tomorrow. Objective - Vital Signs Vital signs: Vital Signs Temp 98.6 F 11/20/18 11:25 Pulse 62 11/20/18 11:51 Resp 18 11/20/18 11:51 BP 121/65 11/20/18 11:25 Pulse Ox 97 11/20/18 11:25 Intake & Output 11/19/18 11/20/18 11/20/18 18:59 06:59 18:59 Intake Total 15.64 240 Balance 15.64 240 Weight 90.2 kg Intake: Intake, IV Titration 15.64 Amount Heparin Sod,Pork in 0.45% 15.64 NaCl 25,000 unit In 0.45 % NaCl 1 250ml.bag @ 10 mls/hr IV .Q24H ALLYSSA Rx#: [id number] Oral 240 Other: Voiding Method Toilet # Voids 1 1 - Constitutional Constitutional Comment(s): Review of Systems CONSTITUTIONAL: Well-developed no acute respiratory distress. EYES: No icterus sclerae, no conjunctivitis. EARS, NOSE, MOUTH, THROAT, and FACE: No sore throat, lymphadenopathy, carotid bruits or deformity. RESPIRATORY: No SOB cough or wheezes. CARDIOVASCULAR: Positive CP, Palpitation, PND, Orthopnea, or angina. GASTROINTESTINAL: No Abd pain, Nausea or vomiting, no Diarrhea or constipation, No GI Bleed, no distention or masses. GENITOURINARY: Negative for Hematuria or UTI, no kidney stones. INTEGUMENT/BREAST: Negative for any muscular injury with mild osteoarthritis.. HEMATOLOGIC/LYMPHATIC: Negative for bleed or purpura. MUSCULOSKELTAL: Negative for Myalgia or arthralgia. NEURLOGICAL: Positive memory loss, no major weakness. BEHAVIORAL/PSYCH: Negative. ENDOCRINE: Negative. Physical Exam: General Appearance: Alert, cooperative, no distress, appears stated age. Mildly overweight not having any chest pain at the time. Neck HEENT: Supple, no lymphadenopathy, no thyroid enlargement, no carotid bruits. Lungs: Clear to auscultation without crackles or wheezes no rhonchi, no deformity. Chest Wall: Decreased expansion bilaterally, no deformity no tenderness over the chest wall area congenital abnormality. No rash. Heart: PMI is in the left fifth costal space jose ramon-axillary line Irregular rhythm and rate S1, S2 positive history positive JVD. Back: Symmetric, no curvature, ROM normal, no CVA tenderness. Abdomen: Soft, non-tender, bowel sounds active all four quadrants, no masses, no organomegaly. Extremities: Extremities normal, atraumatic, no cyanosis or edema. Pulses: 2+ and symmetric. Skin: Skin color, texture, tugor normal, no rashes or lesions. Neurologic: Alert slightly confusion moving all his 4 extremity has a last weakness possibly abnormal gait and balance. - Labs CBC & Chem 7: 11/19/18 10:42 11/19/18 14:48 Labs: Abnormal Lab Results - Last 24 Hours (Table) 11/19/18 11/19/18 11/19/18 Range/Units 10:42 14:48 20:45 WBC 11.6 H (3.8-10.6) k/uL RBC 4.23 L (4.30-5.90) m/uL Neutrophils # 8.4 H (1.3-7.7) k/uL APTT 45.8 H (22.0-30.0) sec Chloride 111 H (98-107) mmol/L BUN 22 H (9-20) mg/dL Glucose 110 H (74-99) mg/dL 11/20/18 Range/Units 02:52 WBC (3.8-10.6) k/uL RBC (4.30-5.90) m/uL Neutrophils # (1.3-7.7) k/uL APTT 41.3 H (22.0-30.0) sec Chloride (98-107) mmol/L BUN (9-20) mg/dL Glucose (74-99) mg/dL Assessment and Plan Plan: 1 unstable angina: Doing much better, no symptoms currently, was started on Imdur and echocardiogram will be done today or early tomorrow, titrate physical therapy and mobility and no chest pain so far. 2 severe aortic stenosis: Gradient across the valve on echocardiogram was 54 mmHg. Lungs discussion with cardiology and the about the possibility of doing TAVR, patient and his will think about it and decided as an outpatient. Also with the aortic valve the weight is cannot stay on isosorbide was start medication at this point. 2 history of CAD: Post quadruple bypass years ago patient's seeing cardiology regular basis last invasive testing was few years ago with mild disease at the time. Patient will be continued on medical management but beta won and possible long acting nitrate will be helpful. 3 hypertension: Has been doing well on metoprolol. 4 hyperlipidemia: Remain on atorvastatin 20 mg daily continue medication. 5 hypothyroidism: Continue patient on Synthroid 50 g daily. 6 severe GERD: Patient has been on omeprazole 20 mg daily continue medication. 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 8 abnormal balance and gait: Patient is walking with the walker and he might need PTOT. After full discussion of the finding with ration and his he wants to go home and go for follow-up in the office to discuss the possibility of doing this procedure and then discuss with his apprentice stylist in length one-to-one a do afterward if he decide heart catheter and even TAVR; might be an option. Patient will be discharged home today. Plan - Discharge Summary New Discharge Prescriptions: Continue Aspirin 162 mg PO DAILY Atorvastatin [Lipitor] 20 mg PO DAILY Omeprazole [PriLOSEC] 20 mg PO AC-BRK Metoprolol Tartrate [Lopressor] 25 mg PO BID Vitamin B Complex 1 cap PO DAILY Levothyroxine Sodium [Synthroid] 50 mcg PO DAILY Cholecalciferol [Vitamin D3] 1,000 unit PO DAILY Discharge Medication List Aspirin 162 mg PO DAILY 09/08/14 [History] Atorvastatin [Lipitor] 20 mg PO DAILY 09/08/14 [History] Omeprazole [PriLOSEC] 20 mg PO [id number] 09/08/14 [History] Cholecalciferol [Vitamin D3] 1,000 unit PO DAILY 08/04/16 [History] Levothyroxine Sodium [Synthroid] 50 mcg PO DAILY 08/04/16 [History] Metoprolol Tartrate [Lopressor] 25 mg PO BID 08/04/16 [History] Vitamin B Complex 1 cap PO DAILY 08/04/16 [History] Follow up Appointment(s)/Referral(s): Alpesh Hargrove MD [STAFF PHYSICIAN] - 1 Week Discharge Disposition: HOME SELF-CARE
== END 2018-11-21 12:30 | disposition home or self-care (01) ==
LOC: EC 10:07 → 1SOBS 13:54
PROVIDERS: ADMIT Internal Medicine Geriatric Medicine; ATTEND Internal Medicine Geriatric Medicine
DX: I35.0 Nonrheumatic aortic (valve) stenosis (principal); I25.110 Atherosclerotic heart disease of native coronary artery with unstable angina pectoris; I11.9 Hypertensive heart disease without heart failure; I48.91 Unspecified atrial fibrillation; E03.9 Hypothyroidism, unspecified; K21.9 Gastro-esophageal reflux disease without esophagitis; I73.9 Peripheral vascular disease, unspecified; M19.90 Unspecified osteoarthritis, unspecified site; G31.84 Mild cognitive impairment of uncertain or unknown etiology; R26.9 Unspecified abnormalities of gait and mobility; K57.90 Diverticulosis of intestine, part unspecified, without perforation or abscess without bleeding; E78.5 Hyperlipidemia, unspecified; H91.93 Unspecified hearing loss, bilateral; Z79.82 Long term (current) use of aspirin; Z79.890 Hormone replacement therapy; Z79.899 Other long term (current) drug therapy; Z95.1 Presence of aortocoronary bypass graft; Z90.49 Acquired absence of other specified parts of digestive tract; Z86.718 Personal history of other venous thrombosis and embolism; Z87.19 Personal history of other diseases of the digestive system; Z66 Do not resuscitate; Z97.4 Presence of external hearing-aid; Z87.09 Personal history of other diseases of the respiratory system; Z87.440 Personal history of urinary (tract) infections; Z96.652 Presence of left artificial knee joint; Z96.641 Presence of right artificial hip joint; Z98.42 Cataract extraction status, left eye; Z98.41 Cataract extraction status, right eye; Z96.1 Presence of intraocular lens; Z80.7 Family history of other malignant neoplasms of lymphoid, hematopoietic and related tissues; Z82.49 Family history of ischemic heart disease and other diseases of the circulatory system; Z83.49 Family history of other endocrine, nutritional and metabolic diseases; Z82.61 Family history of arthritis; Z81.8 Family history of other mental and behavioral disorders; Z80.9 Family history of malignant neoplasm, unspecified
CPT/HCPCS: 96365; 96366; 99285; 93005; 93306; 83880; 80053; 82150; 82550 ×2; 82553 ×2; 83690; 83735; 84100; 84484 ×2; 85025 ×2; 85730 ×2; 71046; G0378 ×3; J1644